=== PATIENT | female | born 1990 | race Caucasian/White ===

== ENCOUNTER 2018-05-20 04:14 | Inpatient (IN) | payer BC ==
--- OUTSIDE RECORDS SUMMARY | 2018-05-20 04:15 | XMS REPORT ---
:1990 Author Organization [facility] Address [address] [place] [address] Care Team Providers Name Role Phone SKYLAR MOCTEZUMA Unavailable Unavailable Problems This patient has no known problems. Allergies, Adverse Reactions, Alerts This patient has no known allergies or adverse reactions. Medications This patient has no known medications. Results Test Description Test Time Test Comments Text Results Atomic Results Result Comments US OB COMP > 14 WKS 2017-12-14 08:22:32 Exam: OB ultrasound.CLINICAL HISTORY: (TA) ABD PAIN: Pain- Abdominalfell face first landing on abdomen. 17 weeks Order Date: 12/13/2017 9:35 PMCOMPARISON: None available.TECHNIQUE: Transabdominal ultrasound of the uterus was performedFINDINGS:There is a single live fetus in breech position.The placenta is posterior without placenta previa. The amniotic fluid is normalfor gestational stage. The cervix measures 4.0 cm in length. The umbilical cordhas three vessels and a normal insertion into the abdomen.There is a focal contraction seen within the posterior uterine body during theentirety of the examination. structural survey demonstrates the cranium and spine to be intact withoutvisible focal defect. There is no evidence for ventriculomegaly. The cisternamagna is normal in size. A normal cavum septum pellucidum is identified. Theheart has a left apex, four chambers, normal rhythm and normal rate of 152 beatsper minute. A left-sided stomach, two paraspinal kidneys and fetalbladder are confirmed.Current measurements are:BPD - 3.7 cm=17 weeks 1 daysHC - 14.1 cm=17 weeks 2 daysAC - 11.5 cm=17 weeks 1 dayFL - 2.6 cm=17 weeks 2 daysThe gestational size based on todays measurements is 17 weeks 2 days +/- twoweeks.The estimated weight is 197+/- 29 gm. This is at the 57 percentile for theexpected gestational age.All measured ratios and indices are within normal limits.The estimated date of delivery is May 21, 2018.IMPRESSION:1. Single live intrauterine with a estimated gestational age of 17weeks and 2 days and estimated delivery date of May 21, 2018.2. Anatomic survey is normal. There is a focal contraction seen during theentirety of the exam.3. No evidence of placenta previa and the maternal cervix is long and closed.Cervical length of 4.0 cm.4. gender is male.These findings were verbally reported by environmental health technologist Ami to [facility] on December 13, 2017 2245 hrs.. :::This final report was electronically signed by Dr Denise Paulion MD 12/14/20178:16 AMDictated By: DENISE PAULINODate: 12/14/2017 08:22
[2018-05-20] MEDS ORDERED: BUTORPHANOL 1 MG/ML INJ IV PRN (05:10)
[2018-05-20] MEDS ORDERED: PENICILLIN 5 MU in NA CHLORIDE 0.9% 100 ML IV ONE (05:10)
[2018-05-20] MEDS ORDERED: METHYLERGONOVINE 0.2MG/ML AMP IM PRN (05:10)
[2018-05-20] MEDS ORDERED: MIDAZOLAM HCL 2 MG/2 ML INJ IV PRN (05:10)
[2018-05-20] MEDS ORDERED: PROMETHAZINE 25 MG/ML VIAL IM PRN (05:10)
[2018-05-20] MEDS ORDERED: CARBOPROST TROME 250 MCG/ML IM PRN (05:10)
[2018-05-20] MEDS ORDERED: Ringers Lactate 1,000 ML IV PRN (05:10)
[2018-05-20] MEDS ORDERED: MEPERIDINE HCL 25 MG/0.5 ML IV PRN (05:10)
[2018-05-20 05:27] LABS: RPR Titer ND
[2018-05-20 05:29] LABS: Absolute Monocytes 0.8 K/uL (0.1-1.3); Absolute Neutrophil 5.1 K/uL (1.8-8.0); Basophils % 0.2 % (0-1.3); Hematocrit 36.5 % (36.0-45.0); Lymphocytes % 24.6 % (15.3-44.8); MCH 32.1 pg (27.0-35.0); MCV 91.3 fL (80-100); MPV 9.7 fL (7.6-11.3)
[2018-05-20 05:30] LABS: Urine Appearance CLOUDY; Urine Bilirubin NEGATIVE (NEG); Urine Blood 1+ (NEG); Urine Color YELLOW; Urine Glucose NEGATIVE (NEG); Urine Protein NEGATIVE (NEG); Urine Urobilinogen 0.2 mg/dL (0.2-1.0)
[2018-05-20 05:31] LABS: Urine Microscopic Reflex ORDER UMIC
[2018-05-20 05:41] LABS: Urine Bacteria 20-50 /HPF (<20); Urine Culture Reflex Order REFLEXED; Urine RBC NONE SEEN /HPF (NONE SEEN)
[2018-05-20] MEDS ORDERED: PENICILLIN G POT 5 MU/100 ML BAG IV ONE (05:46)
[2018-05-20] MEDS ORDERED: Ringers Lactate 1,000 ML IV SCH (06:00)
[2018-05-20] MEDS ORDERED: OXYTOCIN/LR 20 UNIT/1,000 ML BAG IV SCH ×2 (06:00→19:00)
[2018-05-20 06:39] VITALS: BMI 30.7
[2018-05-20] MEDS ORDERED: PENICILLIN 2.5 MU in NA CHLORIDE 0.9% 100 ML IV SCH (09:00)
[2018-05-20] MEDS ORDERED: ROPIVACAINE HCL 100 ML IV PRN (13:23)
[2018-05-20] MEDS ORDERED: FENTANYL CITR 100 MCG/2 ML IV ONE (13:23)
[2018-05-20] MEDS ORDERED: ROPIVACAINE HCL 0.2% 20ML AMP SQ ONE (13:24)
[2018-05-20] MEDS ORDERED: LIDOCAINE 2% INJ, 20 mL 0 ML ONE (13:36)
--- NOTE | 2018-05-20 16:36 | PN ---
The patient is nancy every 2-3 minutes on her own. No Pitocin at this point. She is on interm ittent monitoring at her request. She is doing Lamaze breathing techniques very well. She has had n o analgesics at this point nor did she plan on any. She is now 6 cm, 90-100% effaced, 0 station. As long as she is making good progress, we will not restart the Pitocin. Of course, she gets her pen icillin every 4 hours but is doing quite well and should start making even more rapid progress from t his point forward. CAROLINE/ROSALINA Voice ID: [id number] Report ID: [id number]
[2018-05-20] MEDS ORDERED: DIPHENHYDRAMINE 25 MG TAB/CAP PO PRN (16:54)
[2018-05-20] MEDS ORDERED: DOCUSATE NA/SENNA CONC 1 TAB PO PRN (16:54)
[2018-05-20] MEDS ORDERED: IBUPROFEN 200 MG TAB PO PRN (16:54)
[2018-05-20] MEDS ORDERED: BISACODYL 10 MG RECTAL SUPP RECT PRN (16:54)
[2018-05-20] MEDS ORDERED: ACETAMINOPHEN 500 MG TAB PO PRN (16:54)
[2018-05-20] MEDS ORDERED: METHYLERGONOVINE 0.2 MG TAB PO PRN (16:54)
[2018-05-20] MEDS ORDERED: Oxycodone HCl/Acetaminophen 1 TAB TAB PO PRN ×2 (16:54)
--- NOTE | 2018-05-20 18:37 | PN ---
The patient is now complete. About a +1 station. Will begin to push. FHT still very reactive. Las t baby was in the 8 pounds 12 ounce range. I think this one is probably about the same size. CAROLINE/ROSALINA Voice ID: [id number] Report ID: [id number]
[2018-05-20 23:52] LABS: RPR (Rapid Plasma Reagin) NON-REACT (NON-REACT)
--- NOTE | 2018-05-21 03:56 | OP ---
Surgeon: Nehemiah Bland MD Nora Rojas is a 27-year-old, 5, para 2, AB2, 39 weeks 2 days, for labor induction, 2.5 c m on admission rupture of membranes that approximately 2.5 to 3 cm, clear fluid. The patient used La maze breathing techniques until approximately 6 cm, and at which time, requested epidural anesthesia. This was administered, gave good effect during remainder of labor and delivery. Second stage of ab out 20 to 25 minutes. Spontaneous vaginal delivery of an estimated 9 pounds plus male . s 8 and 9. Small first-degree laceration repaired with 2-0 chromic. Schultze delivery of the placen ta, which was inspected and noted to be intact and normal. Mild uterine hypotonus. 0.2 mg of Mether gine IM as well as IV drip Pitocin and massage. Estimated blood loss 400 to 450 cc. The patient richard erated all procedures well. Penicillin prophylaxis was given x3 during the labor. She is Rh positiv e. Nonimmune to Rubella. Final Diagnoses: Term uterine , 39 weeks 2 days, labor induction, vaginal delivery, epidura l anesthesia, mild uterine hypotonus, penicillin prophylaxis. CAROLINE/ROSALINA Voice ID: [id number] Report ID: [id number]
--- NOTE | 2018-05-21 09:34 | PN ---
The patient is now 8 cm, 100% effaced, vertex, still, 0 station. She is requesting epidural anesthes ia. After the epidural has been established, we will start Pitocin back since the patient is not on Pitocin at this point. Once we get firmer contractions, I think she will dilate the rest of the way and we can then begin pushing. CAROLINE/ROSALINA Voice ID: [id number] Report ID: [id number]
--- NOTE | 2018-05-21 09:34 | PREOPHP ---
Date of Admission: 05/20/2018 This is a 27-year-old, 5, para 2, AB2 at 39 weeks and 2-3 days for labor induction. Rh posit shane, immune to Rubella. Positive beta strep screen. The patient has received her first dose of peni cillin. FHT is normal reactive, nancy every 3 minutes. She is on 6 milliunits of Pitocin at t his point. The patient is 3 cm, 50% effaced, still somewhat posterior. Rupture of membranes, clear fluid. Anticipate more rapid progress. The patient is attempting natural childbirth. She is in con trol of when Pitocin or if Pitocin is increased in amount during her labor. Full labor talk given. Anticipate delivery sometime later today. CAROLINE/ROSALINA Voice ID: [id number]
--- NOTE | 2018-05-21 14:08 | DS ---
Hospital Course: This is a 27-year-old, 5, para 2, AB 2, 39 weeks 2 days. Delivered a 9 memo nd, 14 ounce male infant, Apgars 8 and 9. Small first-degree laceration, requiring 4 stitches, 2-0 c hromic, epidural anesthesia. Schultze delivery of the placenta was inspected and noted be intact and normal. Mild uterine hypertonicity 400-450 cc. Total blood loss 0.2 mg of Methergine IM as well as IV drip Pitocin. Penicillin prophylaxis during the labor x3. ; afebrile, ambulating, voi ding with lochia. Rh positive. Immune to Rubella. She has not had her Tdap immunization, and I thi nk she is pretty much declined it every time we have talked about in the office. Dismissed later thi s evening or tomorrow morning to report back to my office in 6 weeks for followup, to report any temp erature elevation of 100 degrees or greater, severe pain, heavy bleeding, or any other type of abnorm alities. She is dismissed with 10 tramadol, but probably will take Motrin instead. Final Diagnoses: 1.Term intrauterine , 39 weeks 2 days. 2.Vaginal delivery. 3. macrosomia. 4.Mild uterine hypotonus. 5.Penicillin prophylaxis. 6.Epidural anesthesia. CAROLINE/ROSALINA Voice ID: [id number] Report ID: [id number]
[2018-05-21 17:59] VITALS: BP 121/85; TEMP 98.3
[2018-05-22 04:00] LABS: HBsAG Nonreactive (Nonreactive)
== END 2018-05-21 18:30 | disposition home or self-care (01) | DRG 775 ==
LOC: 2ND-WC 04:14
PROVIDERS: ADMIT Specialist; ATTEND Specialist
PROC: 10907ZC Drainage of Amniotic Fluid, Therapeutic from Products of Conception, Via Natural or Artificial Opening (ICD-10-PCS; principal; 2018-05-20)
PROC: 10E0XZZ Delivery of Products of Conception, External Approach (ICD-10-PCS; 2018-05-20)
PROC: 0HQ9XZZ Repair Perineum Skin, External Approach (ICD-10-PCS; 2018-05-20)
DX: O70.0 First degree perineal laceration during delivery (principal); O62.2 Other uterine inertia; O99.824 Streptococcus B carrier state complicating childbirth; O36.63X0 Maternal care for excessive fetal growth, third trimester, not applicable or unspecified; Z3A.39 39 weeks gestation of pregnancy; Z37.0 Single live birth
CPT/HCPCS: 36415; 81003; 81015; 85025; 86592; 86850; 86900; 86901; 87077; 87086; 87088; 87186; 87340; J2210; J2590; J2795; J3010